=== PATIENT | male | born 1965 | race American Indian/Alaskan Native ===

== ENCOUNTER 2017-02-20 23:15 | Inpatient (IN) | payer MEDICAID ==
[2017-02-21 00:11] LABS: Basophils % (Auto) 0.7 % (0.0-1.8); Eosinophils % (Auto) 5.8 % (0.0-4.3); Hematocrit 34.5 % (35.5-45.6); Hemoglobin 11.5 gm/dl (11.8-15.2); Mean Corpuscular HGB Conc 33 % (32-34); Mean Corpuscular Hemoglobin 31 pg (28-32); Mean Corpuscular Volume 94 fl (84-94); Platelet Count 174 K/mm3 (140-440); Red Blood Count 3.65 M/mm3 (3.65-5.03); White Blood Count 8.2 K/mm3 (4.5-11.0)
[2017-02-21 00:26] LABS: Red Cell Distribution Width 22.7 % (13.2-15.2)
[2017-02-21 00:34] LABS: BUN/Creatinine Ratio 10.47; Calcium 8.8 mg/dL (8.4-10.2); Chloride 103.9 mmol/L (98-107); Potassium 3.6 mmol/L (3.6-5.0)
[2017-02-21] MEDS ORDERED: DUONEB 0.5 MG-3 MG/3 ML SOLN IH ONE ×2 (07:52→13:30)
[2017-02-21] MEDS ORDERED: LASIX IV ONE (07:52)
--- NOTE | 2017-02-21 07:57 | Emergency Department Report ---
HPI - General Chief Complaint: Dyspnea/Respdistress Time Seen by Provider: 02/21/17 07:45 - HPI HPI: This is a 51-year-old Afro[place]er male who presents to the emergency department from home with complaint of a 24-hour history of shortness of breath. He says "I told my sister was having trouble breathing and she told me I should go to the emergency department." It is associated with some chest tightness. He denies any nausea, vomiting or diaphoresis. He does present with some lower extremity swelling. He has a history of COPD but is not oxygen dependent. He has a history of CHF. He does not have a nebulized breathing machine but does have an inhaler and tried his inhaler without much relief. He also has a history of being on Lasix but says he has been out of the medication for about 1 week. He also says that he was recently diagnosed with hepatitis C. He denies any current smoking. No recent travel or sick contacts at home. He does not currently have a primary care physician. ED Past Medical Hx - Past Medical History Previous Medical History?: Yes Hx Hypertension: Yes Hx Congestive Heart Failure: Yes Additional medical history: Hep C - Surgical History Past Surgical History?: Yes Additional Surgical History: Left hip replacement - Social History Smoking Status: Current Every Day Smoker Substance Use Type: Alcohol, Cocaine - Medications Home Medications: Home Medications Medication Instructions Recorded Confirmed Last Taken Type Aspirin [Adult Low Dose Aspirin EC] 81 mg PO DAILY 02/21/17 02/21/17 Unknown History AtorvaSTATin [Lipitor] 40 mg PO QHS 02/21/17 02/21/17 Unknown History Carvedilol [Coreg] 12.5 mg PO BID 02/21/17 02/21/17 Unknown History Escitalopram [Lexapro] 10 mg PO DAILY 02/21/17 02/21/17 Unknown History Folic Acid [Folvite] 1 mg PO QDAY 02/21/17 02/21/17 Unknown History Furosemide [Lasix TAB] 40 mg PO QDAY 02/21/17 02/21/17 Unknown History Hydralazine HCl [Apresoline TAB] 50 mg PO Q8HR 02/21/17 02/21/17 Unknown History Lisinopril [Zestril TAB] 10 mg PO QDAY 02/21/17 02/21/17 Unknown History Quetiapine Fumarate [SEROquel] 50 mg PO QDAY 02/21/17 02/21/17 Unknown History Spironolactone [Aldactone] 25 mg PO QDAY 02/21/17 02/21/17 Unknown History Warfarin [Coumadin] 5 mg PO QDAY 02/21/17 02/21/17 Unknown History Zolpidem [Ambien] 5 mg PO QHS PRN 02/21/17 02/21/17 Unknown History amLODIPine [Norvasc] 10 mg PO DAILY 02/21/17 02/21/17 Unknown History ED Review of Systems ROS: Stated complaint: CHEST PAIN, COPD Other details as noted in HPI Comment: All other systems reviewed and negative Constitutional: denies: chills, fever Eyes: denies: eye pain, eye discharge, vision change ENT: denies: ear pain, throat pain Respiratory: shortness of breath, wheezing Cardiovascular: chest pain, edema Gastrointestinal: denies: abdominal pain, nausea, diarrhea Genitourinary: denies: urgency, dysuria Musculoskeletal: denies: back pain, joint swelling, arthralgia Skin: denies: rash, lesions Neurological: denies: headache, weakness, paresthesias Physical Exam - Physical Exam Vital Signs: Vital Signs 02/20/17 02/21/17 02/21/17 23:48 07:37 07:46 Temperature 97.7 F Pulse Rate 95 H 87 Respiratory 22 28 H Rate Blood Pressure 162/115 Blood Pressure 167/120 [Left] O2 Sat by Pulse 99 99 Oximetry 02/21/17 07:47 Temperature Pulse Rate Respiratory 24 Rate Blood Pressure Blood Pressure [Left] O2 Sat by Pulse 99 Oximetry Physical Exam: GENERAL: The patient is well-developed well-nourished. HEENT: Normocephalic. Atraumatic. Extraocular motions are intact. Patient has moist mucous membranes. Pupils equal reactive to light bilaterally. NECK: Supple. Trachea is midline. CHEST/LUNGS: Coarse breath sounds throughout the chest. No tachypnea or accessory muscle use. There is no respiratory distress noted. HEART/CARDIOVASCULAR: Regular. There is no tachycardia. There is no gallop rub or murmur. ABDOMEN: Abdomen is soft, nontender. Patient has normal bowel sounds. There is no abdominal distention. SKIN: 1-2+ pitting edema to bilateral lower extremity's. NEURO: The patient is awake, alert, and oriented. The patient is cooperative. The patient has no focal neurologic deficits. The patient has normal speech. MUSCULOSKELETAL: There is no tenderness or deformity. There is no limitation range of motion. There is no evidence of acute injury. ED Course Vital Signs 02/20/17 02/21/17 02/21/17 23:48 07:37 07:46 Temperature 97.7 F Pulse Rate 95 H 87 Respiratory 22 28 H Rate Blood Pressure 162/115 Blood Pressure 167/120 [Left] O2 Sat by Pulse 99 99 Oximetry 02/21/17 07:47 Temperature Pulse Rate Respiratory 24 Rate Blood Pressure Blood Pressure [Left] O2 Sat by Pulse 99 Oximetry ED Medical Decision Making - Lab Data Result diagrams: 02/21/17 00:03 02/21/17 00:03 - EKG Data -: EKG Interpreted by Me EKG shows normal: sinus rhythm (PVCs), axis (left axis deviation), intervals ( prolonged QTC, left anterior fascicular block), QRS complexes, ST-T waves (T- wave inversions to the lateral leads V5 and V6) - EKG Data When compared to previous EKG there are: previous EKG unavailable Interpretation: other (sinus rhythm with PVCs, left axis deviation, left anterior fascicular block, prolonged QTC, T-wave inversions to leads V5 and V6) - Radiology Data Radiology results: report reviewed, image reviewed interpreted by me: Chest x-ray shows some mild cardiomegaly, pulmonary vascular congestion and mild basilar pleural effusions. No [place] pneumonia. No pneumothorax. Ventilation perfusion scan is negative for pulmonary embolism. - Medical Decision Making 51-year-old male presents with a few days of shortness of breath. He has a history of COPD and CHF and appears to have some combination of these conditions. While he does have some renal insufficiency, his BNP is greater than 10,000 and a chest x-ray shows signs of CHF. He had an elevated an equivocal d-dimer so a VQ scan was done that was negative for pulmonary embolism. He was given steroids, breathing treatment and Lasix. He'll be admitted to the hospital for further evaluation and treatment and has been accepted for admission by the hospitalist service and the nurse practitioner Ta. - Differential Diagnosis COPD, PE, CHF, IN Critical Care Time: No Critical care attestation.: If time is entered above; I have spent that time in minutes in the direct care of this critically ill patient, excluding procedure time. ED Disposition Clinical Impression: COPD exacerbation CHF exacerbation Qualifiers: Congestive heart failure type: unspecified congestive heart failure type Qualified Code(s): I50.9 - Heart failure, unspecified Dyspnea Qualifiers: Dyspnea type: unspecified Qualified Code(s): R06.00 - Dyspnea, unspecified Disposition: 09 OP ADMIT IP TO THIS HOSP Is pt being admited?: Yes Condition: Stable Instructions: Chronic Obstructive Pulmonary Disease (ED) Referrals: PRIMARY CARE, [Primary Care Provider] - 3-5 Days Time of Disposition: 11:07
[2017-02-21 08:33] LABS: Albumin 3.3 g/dL (3.9-5); Albumin/Globulin Ratio 1.1 %; Bilirubin,Direct 0.2 mg/dL (0-0.2); Bilirubin,Indirect 0.5 mg/dL; Bilirubin,Total 0.7 mg/dL (0.1-1.2); Total Protein 6.3 g/dL (6.3-8.2)
--- NOTE | 2017-02-21 09:13 | XRay Report ---
Chest 2 views. History: Shortness of breath. Findings: The heart is enlarged with mild central venous congestion. Samuel B lines are present. Impression: Mild CHF.
--- NOTE | 2017-02-21 09:45 | Admit Criteria Form ---
Admission Criteria Documentation: COPD Clinical Indications for Admission to Inpatient Care (Place 'X' for any and all applicable criteria): Admission is indicated for ANY ONE of the following (1)(2)(3): [X]I. Acute exacerbation by high-risk comorbidity (e.g., pneumonia, dysrhythmia, heart failure, pleural effusion, pneumothorax) or severe underlying COPD (e.g., steroid dependent) [ ]II. Inpatient admission required rather than observation care (see Chronic Obstructive Pulmonary Disease: Observation Care) because of ANY ONE of the following: [ ]a) New or pre-existing signs or symptoms of COPD (eg, dyspnea or Tachypnea at rest or with minimal activity) that persist despite outpatient and observation care treatment [ ]b) New-onset hypoxemia (room air SaO2 less than 90%, PO2 less than 60 mm Hg (8.0 kPa)) that persists despite outpatient and observation care treatment [ ]c) Worsening of pre-existing hypoxemia (eg, new or increased requirement for supplemental oxygen to maintain oxygenation at baseline level) that persists despite outpatient and observation care treatment, with oxygen treatment needs performable only in acute inpatient setting [ ]d) Hypercarbia (PCO2 greater than 40 mm Hg (5.3 kPa))-induced respiratory acidosis (pH less than 7.35) that persists despite outpatient and observation care treatment [ ]e) Supplemental oxygen or respiratory treatments for over 24 hours that are performable only in acute inpatient setting [ ]f) Chest tube placement with active evacuation (e.g., suction, drainage) (5) [ ]g) Other condition, treatment or monitoring requiring inpatient admission [ ]III. Planned invasive surgical or diagnostic procedures requiring acute- care hospitalization [ ]IV. Acute respiratory failure (e.g., uncompensated hypercarbia, severe hypoxemia) [ ]V. Severe comorbid condition (e.g., severe steroid myopathy, acute vertebral fracture) that has acutely worsened pulmonary function [ ]. Confusion state, lethargy, obtundation, stupor or coma Extended stay beyond goal length of stay may be needed for (31)(32): [ ]a ) Respiratory Failure. [ ]b) Severe or persisting hypoxemia or hypercarbia [ ]c) Severe or persistent dyspnea [ ]d) Comorbidities (e.g. chronic heart failure, atrial fibrillation with rapid response, pneumonia) [ ]e) Malnutrition The original [facility] content created by [facility] has been revised. The portions of the content which have been revised are identified through the use of italic text or in bold, and [facility] has neither reviewed nor approved the modified material. All other unmodified content is copyright [facility]. Please see references footnoted in the original [facility] edition 2016 Admission Criteria Met: Yes
--- NOTE | 2017-02-21 09:56 | Nuclear Medicine Report ---
LUNG SCAN, VENTILATION AND PERFUSION: Inhalation of Xenon gas demonstrates a normal distribution of the activity throughout both lungs. The wash out phases show no focal retention of activity. After injection of Technetium 99m macroaggregated albumin gamma camera imaging of the lungs in multiple projections demonstrates normal pulmonary contours with a homogeneous distribution of activity. No focal areas of perfusion deficiency are identified. IMPRESSION: Normal study.
[2017-02-21] MEDS ORDERED: APRESOLINE IV ONE (09:59)
[2017-02-21] MEDS ORDERED: TYLENOL PO PRN (11:31)
[2017-02-21] MEDS ORDERED: ZOFRAN IV PRN (11:31)
[2017-02-21] MEDS ORDERED: DULCOLAX PR PRN (11:31)
[2017-02-21] MEDS ORDERED: PROVENTIL IH PRN (11:31)
[2017-02-21] MEDS ORDERED: MILK OF MAGNESIA PO PRN (11:31)
--- NOTE | 2017-02-21 11:49 | History and Physical Report ---
History of Present Illness Date of examination: 02/21/17 Date of admission: 02/21/17 Chief complaint: SOB History of present illness: A 51-year-old -[place] male presented to the ED with complaints of shortness of breath and chest tightness 1 day. Patient described the feeling of short of breath, can't breathe and worsened this morning. Patient denies any nausea, vomiting, chest pain, syncope or diaphoresis. Patient's medical history COPD but is not oxygen dependent, CHF, hypertension, newly diagnosed hep C, left hip repair 30 years ago. Patient reported using his inhaler and no relief. Medications and Allergies Allergies Allergy/AdvReac Type Severity Reaction Status Date / Time No Known Allergies Allergy Unverified 02/20/17 23:50 Home Medications Medication Instructions Recorded Confirmed Last Taken Type Aspirin [Adult Low Dose Aspirin EC] 81 mg PO DAILY 02/21/17 02/21/17 Unknown History AtorvaSTATin [Lipitor] 40 mg PO QHS 02/21/17 02/21/17 Unknown History Carvedilol [Coreg] 12.5 mg PO BID 02/21/17 02/21/17 Unknown History Escitalopram [Lexapro] 10 mg PO DAILY 02/21/17 02/21/17 Unknown History Folic Acid [Folvite] 1 mg PO QDAY 02/21/17 02/21/17 Unknown History Furosemide [Lasix TAB] 40 mg PO QDAY 02/21/17 02/21/17 Unknown History Hydralazine HCl [Apresoline TAB] 50 mg PO Q8HR 02/21/17 02/21/17 Unknown History Lisinopril [Zestril TAB] 10 mg PO QDAY 02/21/17 02/21/17 Unknown History Quetiapine Fumarate [SEROquel] 50 mg PO QDAY 02/21/17 02/21/17 Unknown History Spironolactone [Aldactone] 25 mg PO QDAY 02/21/17 02/21/17 Unknown History Warfarin [Coumadin] 5 mg PO QDAY 02/21/17 02/21/17 Unknown History Zolpidem [Ambien] 5 mg PO QHS PRN 02/21/17 02/21/17 Unknown History amLODIPine [Norvasc] 10 mg PO DAILY 02/21/17 02/21/17 Unknown History Active Meds: Active Medications Acetaminophen (Tylenol) 650 mg PO Q4H PRN PRN Reason: Pain MILD(1-3)/Fever >100.5/PAPPAS Albuterol (Proventil) 2.5 mg IH Q3HRT PRN PRN Reason: Shortness Of Breath Albuterol/Ipratropium (Duoneb 0.5 Mg-3 Mg/3 Ml Soln) 1 ampul IH Q6HRT DANTE Bisacodyl (Dulcolax) 10 mg MI QDAY PRN PRN Reason: Constipation unrelieved by MOM Budesonide (Pulmicort) 0.5 mg IH Q12HRT DANTE Magnesium Hydroxide (Milk Of Magnesia) 30 ml PO Q4H PRN PRN Reason: Constipation Ondansetron HCl (Zofran) 4 mg IV Q4H PRN PRN Reason: Nausea And Vomiting Exam - Constitutional Vitals: Temp Pulse Resp BP Pulse Ox 97.7 F 99 H 31 H 156/114 95 02/20/17 23:48 02/21/17 11:00 02/21/17 11:00 02/21/17 11:00 02/21/17 11:00 Results - Labs CBC & Chem 7: 02/21/17 00:03 02/21/17 00:03 Labs: Abnormal lab results 02/21/17 02/21/17 02/21/17 Range/Units 00:03 00:03 08:01 Hgb 11.5 L (11.8-15.2) gm/dl Hct 34.5 L (35.5-45.6) % RDW 22.7 H (13.2-15.2) % [place] % (Auto) 8.8 H (0.0-7.3) % Eos % (Auto) 5.8 H (0.0-4.3) % Eos # 0.5 H (0.0-0.4) K/mm3 D-Dimer 306.73 H (0-234) ng/mlDDU BUN 22 H (9-20) mg/dL Creatinine 2.1 H (0.8-1.5) mg/dL NT-Pro-B Natriuret Pep 53993 H (0-900) pg/mL Albumin (3.9-5) g/dL 02/21/17 Range/Units 08:01 Hgb (11.8-15.2) gm/dl Hct (35.5-45.6) % RDW (13.2-15.2) % [place] % (Auto) (0.0-7.3) % Eos % (Auto) (0.0-4.3) % Eos # (0.0-0.4) K/mm3 D-Dimer (0-234) ng/mlDDU BUN (9-20) mg/dL Creatinine (0.8-1.5) mg/dL NT-Pro-B Natriuret Pep (0-900) pg/mL Albumin 3.3 L (3.9-5) g/dL Assessment and Plan A 51-year-old -[place] male presented to the ED with complaints of shortness of breath and chest tightness 1 day. Patient described the feeling of short of breath, can't breathe and worsened this morning. Patient denies any nausea, vomiting, chest pain, syncope or diaphoresis. Patient's medical history COPD but is not oxygen dependent, CHF, hypertension, newly diagnosed hep C, left hip repair 30 years ago. Patient reported using his inhaler and no relief. On exam, patient alert and oriented 3, denies chest pain, positive pedal pulses, trace bilateral lower dependent edema. Patient also reported he does not have a bleach chlorinator at this time.
[2017-02-21] MEDS: DUONEB 0.5 MG-3 MG/3 ML SOLN IH SCH ×2 (13:48→22:56)
--- NOTE | 2017-02-21 16:46 | History and Physical Report ---
History of Present Illness Date of examination: 02/21/17 Date of admission: 02/21/17 11:31 Chief complaint: SOB History of present illness: HPI: This is a 51-year-old Afro-[place] male who presents to the emergency department from home with complaint of a 24-hour history of shortness of breath. He says "I told my sister was having trouble breathing and she told me I should go to the emergency department." It is associated with some chest tightness. He denies any nausea, vomiting or diaphoresis. He does present with some lower extremity swelling. He has a history of COPD but is not oxygen dependent. He has a history of CHF. He does not have a nebulized breathing machine but does have an inhaler and tried his inhaler without much relief. He also has a history of being on Lasix but says he has been out of the medication for about 1 week. He also says that he was recently diagnosed with hepatitis C. He denies any current smoking. No recent travel or sick contacts at home. He does not currently have a primary care physician. ED Past Medical Hx - Past Medical History Previous Medical History?: Yes Hx Hypertension: Yes Hx Congestive Heart Failure: Yes Additional medical history: Hep C - Surgical History Past Surgical History?: Yes Additional Surgical History: Left hip replacement - Social History Smoking Status: Current Every Day Smoker Substance Use Type: Alcohol, Cocaine - Medications Home Medications: Home Medications Medication Instructions Recorded Confirmed Last Taken Type Aspirin [Adult Low Dose Aspirin EC] 81 mg PO DAILY 02/21/17 02/21/17 Unknown History AtorvaSTATin [Lipitor] 40 mg PO QHS 02/21/17 02/21/17 Unknown History Carvedilol [Coreg] 12.5 mg PO BID 02/21/17 02/21/17 Unknown History Escitalopram [Lexapro] 10 mg PO DAILY 02/21/17 02/21/17 Unknown History Folic Acid [Folvite] 1 mg PO QDAY 02/21/17 02/21/17 Unknown History Furosemide [Lasix TAB] 40 mg PO QDAY 02/21/17 02/21/17 Unknown History Hydralazine HCl [Apresoline TAB] 50 mg PO Q8HR 02/21/17 02/21/17 Unknown History Lisinopril [Zestril TAB] 10 mg PO QDAY 02/21/17 02/21/17 Unknown History Quetiapine Fumarate [SEROquel] 50 mg PO QDAY 02/21/17 02/21/17 Unknown History Spironolactone [Aldactone] 25 mg PO QDAY 02/21/17 02/21/17 Unknown History Warfarin [Coumadin] 5 mg PO QDAY 02/21/17 02/21/17 Unknown History Zolpidem [Ambien] 5 mg PO QHS PRN 02/21/17 02/21/17 Unknown History amLODIPine [Norvasc] 10 mg PO DAILY 02/21/17 02/21/17 Unknown History ED Review of Systems ROS: Stated complaint: CHEST PAIN, COPD Other details as noted in HPI Comment: All other systems reviewed and negative Constitutional: denies: chills, fever Eyes: denies: eye pain, eye discharge, vision change ENT: denies: ear pain, throat pain Respiratory: shortness of breath, wheezing Cardiovascular: chest pain, edema Gastrointestinal: denies: abdominal pain, nausea, diarrhea Genitourinary: denies: urgency, dysuria Musculoskeletal: denies: back pain, joint swelling, arthralgia Skin: denies: rash, lesions Neurological: denies: headache, weakness, paresthesias Medications and Allergies Allergies Allergy/AdvReac Type Severity Reaction Status Date / Time No Known Allergies Allergy Unverified 02/20/17 23:50 Home Medications Medication Instructions Recorded Confirmed Last Taken Type Aspirin [Adult Low Dose Aspirin EC] 81 mg PO DAILY 02/21/17 02/21/17 Unknown History AtorvaSTATin [Lipitor] 40 mg PO QHS 02/21/17 02/21/17 Unknown History Carvedilol [Coreg] 12.5 mg PO BID 02/21/17 02/21/17 Unknown History Escitalopram [Lexapro] 10 mg PO DAILY 02/21/17 02/21/17 Unknown History Folic Acid [Folvite] 1 mg PO QDAY 02/21/17 02/21/17 Unknown History Furosemide [Lasix TAB] 40 mg PO QDAY 02/21/17 02/21/17 Unknown History Hydralazine HCl [Apresoline TAB] 50 mg PO Q8HR 02/21/17 02/21/17 Unknown History Lisinopril [Zestril TAB] 10 mg PO QDAY 02/21/17 02/21/17 Unknown History Quetiapine Fumarate [SEROquel] 50 mg PO QDAY 02/21/17 02/21/17 Unknown History Spironolactone [Aldactone] 25 mg PO QDAY 02/21/17 02/21/17 Unknown History Warfarin [Coumadin] 5 mg PO QDAY 02/21/17 02/21/17 Unknown History Zolpidem [Ambien] 5 mg PO QHS PRN 02/21/17 02/21/17 Unknown History amLODIPine [Norvasc] 10 mg PO DAILY 02/21/17 02/21/17 Unknown History Active Meds: Active Medications Acetaminophen (Tylenol) 650 mg PO Q4H PRN PRN Reason: Pain MILD(1-3)/Fever >100.5/PAPPAS Albuterol (Proventil) 2.5 mg IH Q3HRT PRN PRN Reason: Shortness Of Breath Albuterol/Ipratropium (Duoneb 0.5 Mg-3 Mg/3 Ml Soln) 1 ampul IH Q6HRT [facility] Last Admin: 02/21/17 13:48 Dose: 1 ampul Bisacodyl (Dulcolax) 10 mg [place] QDAY PRN PRN Reason: Constipation unrelieved by MOM Budesonide (Pulmicort) 0.5 mg IH Q12HRT [facility] Heparin Sodium (Porcine) (Heparin) 5,000 unit SUB-Q Q12HR DANTE Magnesium Hydroxide (Milk Of Magnesia) 30 ml PO Q4H PRN PRN Reason: Constipation Ondansetron HCl (Zofran) 4 mg IV Q4H PRN PRN Reason: Nausea And Vomiting Exam - Constitutional Vitals: Temp Pulse Resp BP Pulse Ox 98.8 F 88 18 156/107 97 02/21/17 12:55 02/21/17 12:55 02/21/17 12:55 02/21/17 12:55 02/21/17 12:55 General appearance: Present: no acute distress, well-nourished - EENT Eyes: Present: PERRL ENT: hearing intact, clear oral mucosa - Neck Neck: Present: supple, normal ROM - Respiratory Respiratory effort: normal Respiratory: bilateral: CTA - Cardiovascular Heart Sounds: Present: S1 & S2. Absent: rub, click - Extremities Extremities: pulses symmetrical, No edema Peripheral Pulses: within normal limits - Abdominal General gastrointestinal: Present: soft, non-tender, non-distended, normal bowel sounds Male genitourinary: Present: normal - Integumentary Integumentary: Present: clear, warm, dry - Musculoskeletal Musculoskeletal: gait normal, strength equal bilaterally - Psychiatric Psychiatric: appropriate mood/affect, intact judgment & insight - Neurologic Neurologic: CNII-XII intact, moves all extremities Results - Labs CBC & Chem 7: 02/21/17 00:03 02/21/17 00:03 Labs: Laboratory Last Values WBC 8.2 K/mm3 (4.5-11.0) 02/21/17 00:03 RBC 3.65 M/mm3 (3.65-5.03) 02/21/17 00:03 Hgb 11.5 gm/dl (11.8-15.2) L 02/21/17 00:03 Hct 34.5 % (35.5-45.6) L 02/21/17 00:03 MCV 94 fl (84-94) 02/21/17 00:03 MCH 31 pg (28-32) 02/21/17 00:03 MCHC 33 % (32-34) 02/21/17 00:03 RDW 22.7 % (13.2-15.2) H 02/21/17 00:03 Plt Count 174 K/mm3 (140-440) 02/21/17 00:03 Lymph % (Auto) 14.9 % (13.4-35.0) 02/21/17 00:03 [place] % (Auto) 8.8 % (0.0-7.3) H 02/21/17 00:03 Eos % (Auto) 5.8 % (0.0-4.3) H 02/21/17 00:03 Baso % (Auto) 0.7 % (0.0-1.8) 02/21/17 00:03 Lymph # 1.2 K/mm3 (1.2-5.4) 02/21/17 00:03 [place] # 0.7 K/mm3 (0.0-0.8) 02/21/17 00:03 Eos # 0.5 K/mm3 (0.0-0.4) H 02/21/17 00:03 Baso # 0.1 K/mm3 (0.0-0.1) 02/21/17 00:03 Seg Neutrophils % 69.8 % (40.0-70.0) 02/21/17 00:03 Seg Neutrophils # 5.7 K/mm3 (1.8-7.7) 02/21/17 00:03 D-Dimer 306.73 ng/mlDDU (0-234) H 02/21/17 08:01 Sodium 145 mmol/L (137-145) 02/21/17 00:03 Potassium 3.6 mmol/L (3.6-5.0) 02/21/17 00:03 Chloride 103.9 mmol/L (98-107) 02/21/17 00:03 Carbon Dioxide 27 mmol/L (22-30) 02/21/17 00:03 Anion Gap 18 mmol/L 02/21/17 00:03 BUN 22 mg/dL (9-20) H 02/21/17 00:03 Creatinine 2.1 mg/dL (0.8-1.5) H 02/21/17 00:03 Estimated GFR 40 ml/min 02/21/17 00:03 BUN/Creatinine Ratio 10.47 % 02/21/17 00:03 Glucose 99 mg/dL (75-100) 02/21/17 00:03 Calcium 8.8 mg/dL (8.4-10.2) 02/21/17 00:03 Total Bilirubin 0.70 mg/dL (0.1-1.2) 02/21/17 08:01 Direct Bilirubin 0.2 mg/dL (0-0.2) 02/21/17 08:01 Indirect Bilirubin 0.5 mg/dL 02/21/17 08:01 AST 23 units/L (5-40) 02/21/17 08:01 ALT 20 units/L (7-56) 02/21/17 08:01 Alkaline Phosphatase 80 units/L (35-129) 02/21/17 08:01 Troponin T 0.025 ng/mL (0.00-0.029) 02/21/17 00:03 NT-Pro-B Natriuret Pep 75155 pg/mL (0-900) H 02/21/17 00:03 Total Protein 6.3 g/dL (6.3-8.2) 02/21/17 08:01 Albumin 3.3 g/dL (3.9-5) L 02/21/17 08:01 Albumin/Globulin Ratio 1.1 % 02/21/17 08:01 Short CBC 02/21/17 Range/Units 00:03 WBC 8.2 (4.5-11.0) K/mm3 Hgb 11.5 L (11.8-15.2) gm/dl Hct 34.5 L (35.5-45.6) % Plt Count 174 (140-440) K/mm3 BMP 02/21/17 00:03 Sodium 145 Potassium 3.6 Chloride 103.9 Carbon Dioxide 27 BUN 22 H Creatinine 2.1 H Glucose 99 Calcium 8.8 Cardiac Enzymes 02/21/17 Range/Units 00:03 Troponin T 0.025 (0.00-0.029) ng/mL Liver Function 02/21/17 Range/Units 08:01 Total Bilirubin 0.70 (0.1-1.2) mg/dL Direct Bilirubin 0.2 (0-0.2) mg/dL AST 23 (5-40) units/L ALT 20 (7-56) units/L Alkaline Phosphatase 80 (35-129) units/L Albumin 3.3 L (3.9-5) g/dL Assessment and Plan Assessment and plan: A 51-year-old -[place] male presented to the ED with complaints of shortness of breath and chest tightness 1 day. Patient described the feeling of short of breath, can't breathe and worsened this morning. Patient denies any nausea, vomiting, chest pain, syncope or diaphoresis. Patient's medical history COPD but is not oxygen dependent, CHF, hypertension, newly diagnosed hep C, left hip repair 30 years ago. Patient reported using his inhaler and no relief. On exam, patient alert and oriented 3, denies chest pain, positive pedal pulses, trace bilateral lower dependent edema. Patient also reported he does not have a hydraulic billet maker at this time. -Acute on chronic systolic heart failure-to fluid overload versus acute kidney injury-consulted cardiology, echo for EF and valve function ordered -Acute kidney injury-consulted nephrology -Hypertension-continue home meds, coreg PO -Chronic COPD-continue home meds, nebulizer treatment -DVT prophylaxis-heparin subcutaneous ordered Advance Directives: Yes
[2017-02-21] MEDS: HEPARIN SUB-Q SCH (22:00)
[2017-02-21] MEDS: PULMICORT IH SCH (22:56)
[2017-02-22] MEDS: DUONEB 0.5 MG-3 MG/3 ML SOLN IH SCH ×4 (02:32→21:04)
[2017-02-22 07:01] LABS: Bilirubin,Urine NEG (Negative); Blood,Urine NEG (Negative); Ketones,Urine NEG (Negative); Leukocyte Esterase,Urine NEG (Negative); Nitrite,Urine NEG (Negative); RBC,Urine < 1.0 /HPF (0.0-6.0); Urobilinogen,Urine < 2.0 mg/dL (<2.0)
[2017-02-22 08:05] LABS: Basophils % (Auto) 0.4 % (0.0-1.8); Eosinophils % (Auto) 1.4 % (0.0-4.3); Hematocrit 35.7 % (35.5-45.6); Hemoglobin 11.7 gm/dl (11.8-15.2); Mean Corpuscular HGB Conc 33 % (32-34); Mean Corpuscular Hemoglobin 30 pg (28-32); Mean Corpuscular Volume 92 fl (84-94); Platelet Count 186 K/mm3 (140-440); Red Blood Count 3.87 M/mm3 (3.65-5.03); White Blood Count 9.3 K/mm3 (4.5-11.0)
[2017-02-22 08:17] LABS: Red Cell Distribution Width 22.7 % (13.2-15.2)
[2017-02-22 08:28] LABS: BUN/Creatinine Ratio 13.33; Calcium 8.6 mg/dL (8.4-10.2); Chloride 103.1 mmol/L (98-107); Potassium 3.2 mmol/L (3.6-5.0); Uric Acid 9.1 mg/dL (3.5-7.6)
[2017-02-22] MEDS: PULMICORT IH SCH ×2 (09:00→21:04)
--- NOTE | 2017-02-22 09:44 | Progress Note ---
Subjective Interval history: Patient was seen today for follow-up and multiple renal-related issues He was seen in consultation yesterday Denies any complaints of chest pain pressure or shortness of breath No complaints of pain nausea vomiting Events of 24 hours noted Vitals labs intake output medications were reviewed Objective HEENT: Oral mucosa moist Neck: Supple no JVD Chest: Clear to auscultation no crackles rales wheezes Heart: Regular rate and rhythm S1-S2 heard Abdomen: Soft nontender no renal bruit no CVA tenderness no suprapubic fullness Extremity: Edema less than 1+ dry skin Assessment and plan Renal failure in a patient who has multiple risk factors for underlying chronic kidney disease Reactive upon admission was 2.1 which is currently somewhat better, Accelerated hypertension needs better control and follow-up He has been told to have renal failure in the past as well He is homeless and does not follow-up with physicians even though he has Medicaid as he informs me Multiple comorbidities that makes him prone to progression of renal failure which I have educated him History of ongoing cocaine and tobacco abuse Patient is noncompliant Counseling and education with her regarding renal-related issues all questions were answered We'll continue to follow and make recommendation from renal standpoint Objective - Vital Signs Vital signs: Vital Signs - 12hr 02/22/17 02/22/17 00:00 04:00 Temperature 98.5 F 98.3 F Pulse Rate [ 74 77 Right Radial] Respiratory 18 18 Rate Blood Pressure 146/83 136/93 [Right Arm] O2 Sat by Pulse 98 98 Oximetry - Lab 02/22/17 06:42 02/22/17 06:42 Most recent lab results Calcium 8.6 mg/dL (8.4-10.2) 02/22/17 06:42
[2017-02-22] MEDS: HEPARIN SUB-Q SCH ×2 (10:55→21:36)
--- NOTE | 2017-02-22 14:41 | Consultation ---
History of Present Illness Consult date: 02/22/17 Requesting physician: VITA ENGEL Consult reason: congestive heart failure History of present illness: The pt is a 51-year-old male who has a past medical history significant for HTN , "congestive heart failure", "weak heart", COPD, hepatitis C, tobacco use (1/2 PPD), cocaine use. He is previously unknown to our practice and reports that he is not followed regularly by any doctors as an OP - he frequently goes to the ED with any health concerns. He reports that he is homeless. He presented with c /o SOB, orthopnea, and chest pain x 3 days [employer]. He describes his chest pain as a nonexertional, nonradiating, midsternal tightness that is exacerbated by difficulty breathing. He denies any palpitations, nausea, vomiting, diaphoresis , dizziness, or syncope. On evaluation, he states that his symptoms have completely resolved since receiving Lasix. Past History Past Medical History: COPD, heart failure, hepatitis, hypertension Social history: smoking. denies: alcohol abuse, prescription drug abuse Medications and Allergies Allergies Allergy/AdvReac Type Severity Reaction Status Date / Time No Known Allergies Allergy Unverified 02/20/17 23:50 Home Medications Medication Instructions Recorded Confirmed Last Taken Type Aspirin [Adult Low Dose Aspirin EC] 81 mg PO DAILY 02/21/17 02/21/17 Unknown History AtorvaSTATin [Lipitor] 40 mg PO QHS 02/21/17 02/21/17 Unknown History Carvedilol [Coreg] 12.5 mg PO BID 02/21/17 02/21/17 Unknown History Escitalopram [Lexapro] 10 mg PO DAILY 02/21/17 02/21/17 Unknown History Folic Acid [Folvite] 1 mg PO QDAY 02/21/17 02/21/17 Unknown History Furosemide [Lasix TAB] 40 mg PO QDAY 02/21/17 02/21/17 Unknown History Hydralazine HCl [Apresoline TAB] 50 mg PO Q8HR 02/21/17 02/21/17 Unknown History Lisinopril [Zestril TAB] 10 mg PO QDAY 02/21/17 02/21/17 Unknown History Quetiapine Fumarate [SEROquel] 50 mg PO QDAY 02/21/17 02/21/17 Unknown History Spironolactone [Aldactone] 25 mg PO QDAY 02/21/17 02/21/17 Unknown History Warfarin [Coumadin] 5 mg PO QDAY 02/21/17 02/21/17 Unknown History Zolpidem [Ambien] 5 mg PO QHS PRN 02/21/17 02/21/17 Unknown History amLODIPine [Norvasc] 10 mg PO DAILY 02/21/17 02/21/17 Unknown History Active Meds: Active Medications Acetaminophen (Tylenol) 650 mg PO Q4H PRN PRN Reason: Pain MILD(1-3)/Fever >100.5/PAPPAS Albuterol (Proventil) 2.5 mg IH Q3HRT PRN PRN Reason: Shortness Of Breath Albuterol/Ipratropium (Duoneb 0.5 Mg-3 Mg/3 Ml Soln) 1 ampul IH Q6HRT [facility] Last Admin: 02/22/17 13:31 Dose: Not Given Bisacodyl (Dulcolax) 10 mg [place] QDAY PRN PRN Reason: Constipation unrelieved by MOM Budesonide (Pulmicort) 0.5 mg IH Q12HRT [facility] Last Admin: 02/22/17 09:00 Dose: 0.5 mg Heparin Sodium (Porcine) (Heparin) 5,000 unit SUB-Q Q12HR [facility] Last Admin: 02/22/17 10:55 Dose: Not Given Magnesium Hydroxide (Milk Of Magnesia) 30 ml PO Q4H PRN PRN Reason: Constipation Ondansetron HCl (Zofran) 4 mg IV Q4H PRN PRN Reason: Nausea And Vomiting Review of Systems All systems: negative Cardiovascular: chest pain, orthopnea, shortness of breath Respiratory: shortness of breath Physical Examination Last Vital Signs Temp 98.8 F 02/22/17 12:00 Pulse 90 02/22/17 12:00 Resp 20 02/22/17 12:00 BP 151/94 02/22/17 12:00 Pulse Ox 100 02/22/17 12:00 General appearance: no acute distress HEENT: Positive: PERRL, Normocephaly, Mucus Membranes Moist Neck: Positive: neck supple, trachea midline Cardiac: Positive: Reg Rate and Rhythm, S1/S2 Lungs: Positive: clear to auscultation Neuro: Positive: Grossly Intact, Cranial Nerve 2-12 Intact Abdomen: Positive: Unremarkable, Soft, Active Bowel Sounds Skin: Positive: Clear. Negative: Rash, Wound Musculoskeletal: No Fluid Collection, No Pain, Normal Range of Motion Extremities: Present: upper extr. pulses, lower extr. pulses. Absent: edema Results 02/22/17 06:42 02/22/17 06:42 CBC 02/22/17 Range/Units 06:42 WBC 9.3 (4.5-11.0) K/mm3 RBC 3.87 (3.65-5.03) M/mm3 Hgb 11.7 L (11.8-15.2) gm/dl Hct 35.7 (35.5-45.6) % Plt Count 186 (140-440) K/mm3 Lymph # 1.3 (1.2-5.4) K/mm3 [place] # 0.7 (0.0-0.8) K/mm3 Eos # 0.1 (0.0-0.4) K/mm3 Baso # 0.0 (0.0-0.1) K/mm3 Comprehensive Metabolic Panel 02/22/17 Range/Units 06:42 Sodium 145 (137-145) mmol/L Potassium 3.2 L (3.6-5.0) mmol/L Chloride 103.1 (98-107) mmol/L Carbon Dioxide 25 (22-30) mmol/L BUN 24 H (9-20) mg/dL Creatinine 1.8 H (0.8-1.5) mg/dL Glucose 101 H (75-100) mg/dL Calcium 8.6 (8.4-10.2) mg/dL - Imaging and Cardiology Echo: pending EKG: report reviewed, image reviewed EKG interpretations - Telemetry EKG Rhythm: Sinus Rhythm - EKG Sinus rhythms and dysrhythmias: sinus rhythm Repolarization changes or abnormalities: nonspecific abnormality, ST segment, and/or T wave Assessment and Plan Assessment: Acute heart failure - suspect systolic dysfunction. Chest pain, atypical - EKG with NAF; Terrance negative for AMI. Elevated DDimer - V/Q normal. Accelerated HTN KALIA on ? CKD - renal U/S pending. COPD H/o Hepatitis C Tobacco use / cocaine use - cessation encouraged. Hypokalemia Plan: Await echo. Initiate Coreg, 25mg BID, and lisinopril, 5mg daily. Cont diuresis with IV lasix, 20mg BID. Repeat BMP in AM. Obtain lipid panel in AM. Electrolyte replacement per primary/nephrology. Repeat BMP in AM. Assessment and plan reviewed with pt at bedside. The patient has been seen in conjunction with Dr. Valiente who agrees with the assessment and plan of care.
[2017-02-22] MEDS: ZESTRIL PO SCH (16:45)
[2017-02-22] MEDS ORDERED: K-DUR PO ONE (17:00)
[2017-02-22] MEDS: LASIX IV SCH (18:20)
--- NOTE | 2017-02-22 18:34 | Progress Note ---
Assessment and Plan Assessment and plan: Patient is a 51-year-old Afro-[place] male who presents to the emergency department from home with complaint of a 24-hour history of shortness of breath. He says "I told my sister was having trouble breathing and she told me I should go to the emergency department." It is associated with some chest tightness. He denies any nausea, vomiting or diaphoresis. He does present with some lower extremity swelling. He has a history of COPD but is not oxygen dependent. He has a history of CHF. He does not have a nebulized breathing machine but does have an inhaler and tried his inhaler without much relief. He also has a history of being on Lasix but says he has been out of the medication for about 1 week. He also says that he was recently diagnosed with hepatitis C. He denies any current smoking. No recent travel or sick contacts at home. He does not currently have a primary care physician -Acute on chronic systolic heart failure-likely secondary to noncompliance with medication. Is into exacerbation. Await cardiology input. Start Coreg, 25mg BID, and lisinopril, 5mg daily, await echo for EF, Lipid panel. Request record from [facility] -Acute kidney injury-poa, Unknown baseline. possible underlying CKD. consulted nephrology -Hypertension-continue home meds, coreg PO -Hypokalemia-Replace -Atypical chest pain-Likely colitis -COPD-nebs PRN -Elevated D.dimer- Negative V/Q -Hepatitis C-Outpatient GI -Tobacco dependence- 15 minutes cessations COUNSELLING with community resources provided. -Cocain abuse. -15 minutes cessations COUNSELLING with community resources provided. -Chronic COPD-continue home meds, nebulizer treatment -DVT prophylaxis-heparin subcutaneous ordered -Plan of care discussed with patient Hospitalist Physical - Constitutional Vitals: Temp Pulse Resp BP Pulse Ox 98.8 F 90 20 151/94 100 02/22/17 12:00 02/22/17 16:45 02/22/17 12:00 02/22/17 16:45 02/22/17 12:00 General appearance: Present: no acute distress Results - Labs CBC & Chem 7: 02/22/17 06:42 02/22/17 06:42 Labs: Laboratory Last Values WBC 9.3 K/mm3 (4.5-11.0) 02/22/17 06:42 RBC 3.87 M/mm3 (3.65-5.03) 02/22/17 06:42 Hgb 11.7 gm/dl (11.8-15.2) L 02/22/17 06:42 Hct 35.7 % (35.5-45.6) 02/22/17 06:42 MCV 92 fl (84-94) 02/22/17 06:42 MCH 30 pg (28-32) 02/22/17 06:42 MCHC 33 % (32-34) 02/22/17 06:42 RDW 22.7 % (13.2-15.2) H 02/22/17 06:42 Plt Count 186 K/mm3 (140-440) 02/22/17 06:42 Lymph % (Auto) 13.4 % (13.4-35.0) 02/22/17 06:42 [place] % (Auto) 8.0 % (0.0-7.3) H 02/22/17 06:42 Eos % (Auto) 1.4 % (0.0-4.3) 02/22/17 06:42 Baso % (Auto) 0.4 % (0.0-1.8) 02/22/17 06:42 Lymph # 1.3 K/mm3 (1.2-5.4) 02/22/17 06:42 [place] # 0.7 K/mm3 (0.0-0.8) 02/22/17 06:42 Eos # 0.1 K/mm3 (0.0-0.4) 02/22/17 06:42 Baso # 0.0 K/mm3 (0.0-0.1) 02/22/17 06:42 Seg Neutrophils % 76.8 % (40.0-70.0) H 02/22/17 06:42 Seg Neutrophils # 7.2 K/mm3 (1.8-7.7) 02/22/17 06:42 D-Dimer 306.73 ng/mlDDU (0-234) H 02/21/17 08:01 Sodium 145 mmol/L (137-145) 02/22/17 06:42 Potassium 3.2 mmol/L (3.6-5.0) L 02/22/17 06:42 Chloride 103.1 mmol/L (98-107) 02/22/17 06:42 Carbon Dioxide 25 mmol/L (22-30) 02/22/17 06:42 Anion Gap 20 mmol/L 02/22/17 06:42 BUN 24 mg/dL (9-20) H 02/22/17 06:42 Creatinine 1.8 mg/dL (0.8-1.5) H 02/22/17 06:42 Estimated GFR 48 ml/min 02/22/17 06:42 BUN/Creatinine Ratio 13.33 % 02/22/17 06:42 Glucose 101 mg/dL (75-100) H 02/22/17 06:42 Uric Acid 9.1 mg/dL (3.5-7.6) H 02/22/17 06:42 Calcium 8.6 mg/dL (8.4-10.2) 02/22/17 06:42 Total Bilirubin 0.70 mg/dL (0.1-1.2) 02/21/17 08:01 Direct Bilirubin 0.2 mg/dL (0-0.2) 02/21/17 08:01 Indirect Bilirubin 0.5 mg/dL 02/21/17 08:01 AST 23 units/L (5-40) 02/21/17 08:01 ALT 20 units/L (7-56) 02/21/17 08:01 Alkaline Phosphatase 80 units/L (35-129) 02/21/17 08:01 Troponin T 0.025 ng/mL (0.00-0.029) 02/21/17 00:03 NT-Pro-B Natriuret Pep 92545 pg/mL (0-900) H 02/21/17 00:03 Total Protein 6.3 g/dL (6.3-8.2) 02/21/17 08:01 Albumin 3.3 g/dL (3.9-5) L 02/21/17 08:01 Albumin/Globulin Ratio 1.1 % 02/21/17 08:01 Urine Color Yellow (Yellow) 02/22/17 Unknown Urine Turbidity Clear (Clear) 02/22/17 Unknown Urine pH 6.0 (5.0-7.0) 02/22/17 Unknown Ur Specific [place] 1.019 (1.003-1.030) 02/22/17 Unknown Urine Protein 30 mg/dl mg/dL (Negative) 02/22/17 Unknown Urine Glucose (UA) 50 mg/dL (Negative) 02/22/17 Unknown Urine Ketones Neg mg/dL (Negative) 02/22/17 Unknown Urine Blood Neg (Negative) 02/22/17 Unknown Urine Nitrite Neg (Negative) 02/22/17 Unknown Urine Bilirubin Neg (Negative) 02/22/17 Unknown Urine Urobilinogen < 2.0 mg/dL (<2.0) 02/22/17 Unknown Ur Leukocyte Esterase Neg (Negative) 02/22/17 Unknown Urine WBC (Auto) 1.0 /HPF (0.0-6.0) 02/22/17 Unknown Urine RBC (Auto) < 1.0 /HPF (0.0-6.0) 02/22/17 Unknown U Epithel Cells (Auto) < 1.0 /HPF (0-13.0) 02/22/17 Unknown - Imaging and Cardiology Chest x-ray: image reviewed (CHF)
[2017-02-22] MEDS: COREG PO SCH (21:35)
[2017-02-22] MEDS ORDERED: AMBIEN PO ONE (22:16)
[2017-02-23] MEDS: DUONEB 0.5 MG-3 MG/3 ML SOLN IH SCH ×4 (02:34→20:51)
[2017-02-23] MEDS: LASIX IV SCH ×2 (05:28→18:00)
[2017-02-23] MEDS: PULMICORT IH SCH ×2 (07:35→20:51)
--- NOTE | 2017-02-23 07:38 | Progress Note ---
Subjective Interval history: Patient was seen today for follow-up and multiple renal-related issues Feeling better /less short of breath No complaints of pain nausea vomiting Events of 24 hours noted Vitals labs intake output medications were reviewed Objective HEENT: Oral mucosa moist Neck: Supple no JVD Chest: Clear to auscultation no crackles rales wheezes Heart: Regular rate and rhythm S1-S2 heard Abdomen: Soft nontender no renal bruit no CVA tenderness no suprapubic fullness Extremity: Edema less than 1+ dry skin Assessment and plan Renal failure in a patient who has multiple risk factors for underlying chronic kidney disease Creatinine is better to follow, he is high risk for progression of renal failure educated to comply make lifestyle changes and make a follow-up appointment in the office upon discharge Ultrasonogram shows echogenic kidney with cyst patient was made aware Reactive upon admission was 2.1 which is currently somewhat better, creatinine is currently stable at 1.8 Accelerated hypertension needs better control and follow-up/ ideally would like to add Aldactone however due to noncompliance I am somewhat hesitant about that He has been told to have renal failure in the past as well He is homeless and does not follow-up with physicians even though he has Medicaid as he informs me Multiple comorbidities that makes him prone to progression of renal failure which I have educated him History of ongoing cocaine and tobacco abuse Patient is noncompliant/counseling and education was done Counseling and education with her regarding renal-related issues all questions were answered We'll continue to follow and make recommendation from renal standpoint Objective - Vital Signs Vital signs: Vital Signs - 12hr 02/22/17 02/22/17 02/22/17 20:00 21:05 21:15 Temperature 98.5 F Pulse Rate [ 76 80 Anterior Bilateral Throughout] Pulse Rate [ 93 H Right Radial] Respiratory 18 Rate Respiratory 20 20 Rate [Anterior Bilateral Throughout] Blood Pressure 150/106 [Right Arm] O2 Sat by Pulse 98 Oximetry 02/23/17 02/23/17 02/23/17 00:00 02:35 02:55 Temperature 98.4 F Pulse Rate [ 72 75 Anterior Bilateral Throughout] Pulse Rate [ 70 Right Radial] Respiratory 18 Rate Respiratory 16 16 Rate [Anterior Bilateral Throughout] Blood Pressure 130/89 [Right Arm] O2 Sat by Pulse 97 Oximetry 02/23/17 06:03 Temperature 98.2 F Pulse Rate [ Anterior Bilateral Throughout] Pulse Rate [ 72 Right Radial] Respiratory 18 Rate Respiratory Rate [Anterior Bilateral Throughout] Blood Pressure 119/79 [Right Arm] O2 Sat by Pulse 97 Oximetry - Lab 02/22/17 06:42 02/23/17 07:34 Most recent lab results Calcium 8.6 mg/dL (8.4-10.2) 02/22/17 06:42
--- NOTE | 2017-02-23 08:03 | Ultrasound Report ---
ULTRASOUND RENAL BILATERAL HISTORY: Elevated BUN and creatinine, renal insufficiency. TECHNIQUE: transabdominal ultrasound with color Doppler interrogation. FINDINGS: The right kidney measures 10.4 x 4.0 x 4.7cm. Right renal cortex: 1.3cm. The left kidney measures 10.5 x 5.5 x 5.6cm. Left renal cortex: 1.8cm. Both kidneys are slightly echogenic suggesting nonspecific renal parenchymal disease. There are a few scattered cysts in both kidneys. The largest cyst in the right kidney measures 1.6 cm near the inferior pole. The largest cyst in the left kidney measures 3.2 cm at the superior pole and contains rim calcifications. No hypervascular renal mass, nephrolithiasis, hydronephrosis or perinephric fluid. There is suggestion of a duplicated collecting system in the right kidney. Color Doppler interrogation suggests decreased cortical perfusion in both kidneys. Images through the bladder are unremarkable. IMPRESSION: Renal parenchymal disease. Bilateral renal cysts as described.
[2017-02-23 08:27] LABS: BUN/Creatinine Ratio 13.33; Calcium 8.6 mg/dL (8.4-10.2); Chloride 104.3 mmol/L (98-107); Potassium 3.4 mmol/L (3.6-5.0)
[2017-02-23] MEDS: ZESTRIL PO SCH (09:37)
[2017-02-23] MEDS: COREG PO SCH ×2 (09:37→22:03)
[2017-02-23] MEDS: HEPARIN SUB-Q SCH ×2 (09:37→22:04)
--- NOTE | 2017-02-23 12:06 | Progress Note ---
Assessment and Plan Assessment: Acute systolic heart failure CMP - EF 15-20% Chest pain, atypical - currently resolved; EKG with NAF; Terrance negative for AMI. Elevated DDimer - V/Q normal. Accelerated HTN - improving. KALIA on ? CKD - renal U/S pending. COPD H/o Hepatitis C Tobacco use / cocaine use - cessation encouraged. Hypokalemia Plan: Echo reviewed - EF 15-20%, LV moderately to severely dilated, moderate to severe MR, moderate pulmonary HTN. Cont Coreg, 25mg BID, and lisinopril, 5mg daily. Cont diuresis with IV lasix, 20mg BID. Repeat BMP in AM. Plan for ischemic evaluation for further evaluation of CMP etiology. In setting of ARF, will proceed with lexiscan MPI stress test in AM. NPO after MN. Pt's sister at bedside state's that pt is regularly followed by [facility] - she will provide the kiln loader's name tomorrow AM. Assessment and plan reviewed with pt and pt's sister at bedside. The patient has been seen in conjunction with Dr. Valiente who agrees with the assessment and plan of care. Subjective Date of service: 02/23/17 Principal diagnosis: HF Interval history: no complaints Objective Last Vital Signs Temp 98.8 F 02/23/17 08:15 Pulse 70 02/23/17 11:51 Resp 18 02/23/17 10:00 BP 142/96 02/23/17 08:15 Pulse Ox 98 02/23/17 10:00 - Physical Examination HEENT: Positive: PERRL, Normocephaly, Mucus Membranes Moist Neck: Positive: neck supple, trachea midline Cardiac: Positive: Reg Rate and Rhythm, S1/S2 Lungs: Positive: clear to auscultation Neuro: Positive: Grossly Intact, Cranial Nerve 2-12 Intact Abdomen: Positive: Unremarkable, Soft, Active Bowel Sounds Skin: Positive: Clear. Negative: Rash, Wound Musculoskeletal: No Fluid Collection, No Pain, Normal Range of Motion Extremities: Present: upper extr. pulses, lower extr. pulses. Absent: edema - Labs and Meds Comprehensive Metabolic Panel 02/23/17 Range/Units 07:34 Sodium 145 (137-145) mmol/L Potassium 3.4 L (3.6-5.0) mmol/L Chloride 104.3 (98-107) mmol/L Carbon Dioxide 27 (22-30) mmol/L BUN 24 H (9-20) mg/dL Creatinine 1.8 H (0.8-1.5) mg/dL Glucose 97 (75-100) mg/dL Calcium 8.6 (8.4-10.2) mg/dL - Imaging and Cardiology EKG: report reviewed, image reviewed Echo: pending - EKG Sinus rhythms and dysrhythmias: sinus rhythm Repolarization changes or abnormalities: nonspecific abnormality, ST segment, and/or T wave
--- NOTE | 2017-02-23 17:34 | Progress Note ---
Assessment and Plan Assessment and plan: Patient is a 51-year-old Afro-[place] male who presents to the emergency department from home with complaint of a 24-hour history of shortness of breath. He says "I told my sister was having trouble breathing and she told me I should go to the emergency department." It is associated with some chest tightness. He denies any nausea, vomiting or diaphoresis. He does present with some lower extremity swelling. He has a history of COPD but is not oxygen dependent. He has a history of CHF. He does not have a nebulized breathing machine but does have an inhaler and tried his inhaler without much relief. He also has a history of being on Lasix but says he has been out of the medication for about 1 week. He also says that he was recently diagnosed with hepatitis C. He denies any current smoking. No recent travel or sick contacts at home. He does not currently have a primary care physician -Acute on chronic systolic heart failure-likely secondary to noncompliance with medication. Cardiology input noted. Patient seen to have an ejection fraction of 15-20%. Ischemic workup to be performed by cardiology in a.m. Continue Coreg, 25mg BID, and lisinopril, 5mg daily, and Lasix while monitoring renal function. Lipid panel. Request record from [facility] -Acute kidney injury-poa, Unknown baseline. possible underlying CKD. Nephrology input noted mild improvement today. -Hypertension-continue home meds, coreg PO -Hypokalemia-Replace -Atypical chest pain-Likely colitis -COPD-nebs PRN -Elevated D.dimer- Negative V/Q -Hepatitis C-Outpatient GI -Tobacco dependence- 15 minutes cessations COUNSELLING with community resources provided. -Cocain abuse. -15 minutes cessations COUNSELLING with community resources provided. -Chronic COPD-continue home meds, nebulizer treatment -DVT prophylaxis-heparin subcutaneous ordered -Plan of care discussed with patient -I had extensive discussion with the patient and also with the sister in the room with the patient's permission. I explained detailed procedures that are going to happen next and the need for patient compliance. The patient verbalized understanding. Also discussed with cardiology and they verbalize understanding. History Interval history: Patient seen and examined this morning family member in the room denies any chest pain, shortness of breath nausea vomiting or diarrhea. Hospitalist Physical - Physical exam Narrative exam: VITAL SIGNS: Reviewed. GENERAL: The patient appeared well nourished and normally developed. Vital signs as documented. HEAD: No signs of head trauma. EYES: Pupils are equal. Extraocular motions intact. EARS: Hearing grossly intact. MOUTH: Oropharynx is normal. NECK: No adenopathy, no JVD. CHEST: Chest with clear breath sounds bilaterally. No wheezes, rales, or rhonchi. CARDIAC: Regular rate and rhythm. S1 and S2, without murmurs, gallops, or rubs. VASCULAR: No Edema. Peripheral pulses normal and equal in all extremities. ABDOMEN: Soft, without detectable tenderness. No sign of distention. No rebound or guarding, and no masses palpated. Bowel Sounds normal. MUSCULOSKELETAL: Good range of motion of all major joints. Extremities without clubbing, cyanosis or edema. NEUROLOGIC EXAM: Alert and oriented x 3. No focal sensory or strength deficits. Speech normal. Follows commands. PSYCHIATRIC: Mood normal. SKIN: No rash or lesions. - Constitutional Vitals: Temp Pulse Resp BP Pulse Ox 97.3 F L 68 18 132/82 98 02/23/17 12:30 02/23/17 12:30 02/23/17 12:30 02/23/17 12:30 02/23/17 12:30 General appearance: Present: no acute distress, well-nourished Results - Labs CBC & Chem 7: 02/22/17 06:42 02/23/17 07:34 Labs: Laboratory Last Values WBC 9.3 K/mm3 (4.5-11.0) 02/22/17 06:42 RBC 3.87 M/mm3 (3.65-5.03) 02/22/17 06:42 Hgb 11.7 gm/dl (11.8-15.2) L 02/22/17 06:42 Hct 35.7 % (35.5-45.6) 02/22/17 06:42 MCV 92 fl (84-94) 02/22/17 06:42 MCH 30 pg (28-32) 02/22/17 06:42 MCHC 33 % (32-34) 02/22/17 06:42 RDW 22.7 % (13.2-15.2) H 02/22/17 06:42 Plt Count 186 K/mm3 (140-440) 02/22/17 06:42 Lymph % (Auto) 13.4 % (13.4-35.0) 02/22/17 06:42 [place] % (Auto) 8.0 % (0.0-7.3) H 02/22/17 06:42 Eos % (Auto) 1.4 % (0.0-4.3) 02/22/17 06:42 Baso % (Auto) 0.4 % (0.0-1.8) 02/22/17 06:42 Lymph # 1.3 K/mm3 (1.2-5.4) 02/22/17 06:42 [place] # 0.7 K/mm3 (0.0-0.8) 02/22/17 06:42 Eos # 0.1 K/mm3 (0.0-0.4) 02/22/17 06:42 Baso # 0.0 K/mm3 (0.0-0.1) 02/22/17 06:42 Seg Neutrophils % 76.8 % (40.0-70.0) H 02/22/17 06:42 Seg Neutrophils # 7.2 K/mm3 (1.8-7.7) 02/22/17 06:42 D-Dimer 306.73 ng/mlDDU (0-234) H 02/21/17 08:01 Sodium 145 mmol/L (137-145) 02/23/17 07:34 Potassium 3.4 mmol/L (3.6-5.0) L 02/23/17 07:34 Chloride 104.3 mmol/L (98-107) 02/23/17 07:34 Carbon Dioxide 27 mmol/L (22-30) 02/23/17 07:34 Anion Gap 17 mmol/L 02/23/17 07:34 BUN 24 mg/dL (9-20) H 02/23/17 07:34 Creatinine 1.8 mg/dL (0.8-1.5) H 02/23/17 07:34 Estimated GFR 48 ml/min 02/23/17 07:34 BUN/Creatinine Ratio 13.33 % 02/23/17 07:34 Glucose 97 mg/dL (75-100) 02/23/17 07:34 Uric Acid 9.1 mg/dL (3.5-7.6) H 02/22/17 06:42 Calcium 8.6 mg/dL (8.4-10.2) 02/23/17 07:34 Total Bilirubin 0.70 mg/dL (0.1-1.2) 02/21/17 08:01 Direct Bilirubin 0.2 mg/dL (0-0.2) 02/21/17 08:01 Indirect Bilirubin 0.5 mg/dL 02/21/17 08:01 AST 23 units/L (5-40) 02/21/17 08:01 ALT 20 units/L (7-56) 02/21/17 08:01 Alkaline Phosphatase 80 units/L (35-129) 02/21/17 08:01 Troponin T 0.025 ng/mL (0.00-0.029) 02/21/17 00:03 NT-Pro-B Natriuret Pep 32098 pg/mL (0-900) H 02/21/17 00:03 Total Protein 6.3 g/dL (6.3-8.2) 02/21/17 08:01 Albumin 3.3 g/dL (3.9-5) L 02/21/17 08:01 Albumin/Globulin Ratio 1.1 % 02/21/17 08:01 Urine Color Yellow (Yellow) 02/22/17 Unknown Urine Turbidity Clear (Clear) 02/22/17 Unknown Urine pH 6.0 (5.0-7.0) 02/22/17 Unknown Ur Specific [place] 1.019 (1.003-1.030) 02/22/17 Unknown Urine Protein 30 mg/dl mg/dL (Negative) 02/22/17 Unknown Urine Glucose (UA) 50 mg/dL (Negative) 02/22/17 Unknown Urine Ketones Neg mg/dL (Negative) 02/22/17 Unknown Urine Blood Neg (Negative) 02/22/17 Unknown Urine Nitrite Neg (Negative) 02/22/17 Unknown Urine Bilirubin Neg (Negative) 02/22/17 Unknown Urine Urobilinogen < 2.0 mg/dL (<2.0) 02/22/17 Unknown Ur Leukocyte Esterase Neg (Negative) 02/22/17 Unknown Urine WBC (Auto) 1.0 /HPF (0.0-6.0) 02/22/17 Unknown Urine RBC (Auto) < 1.0 /HPF (0.0-6.0) 02/22/17 Unknown U Epithel Cells (Auto) < 1.0 /HPF (0-13.0) 02/22/17 Unknown
[2017-02-24] MEDS: DUONEB 0.5 MG-3 MG/3 ML SOLN IH SCH ×4 (02:13→22:08)
[2017-02-24] MEDS: LASIX IV SCH (05:42)
[2017-02-24 06:10] LABS: BUN/Creatinine Ratio 16.31; Calcium 8.4 mg/dL (8.4-10.2); Chloride 106.4 mmol/L (98-107); Potassium 3.4 mmol/L (3.6-5.0)
[2017-02-24] MEDS: PULMICORT IH SCH ×2 (08:03→22:08)
--- NOTE | 2017-02-24 08:38 | Progress Note ---
Assessment and Plan Assessment: * Acute kidney injury on probable CKD * Accelerated hypertension * Acute on chronic systolic heart failure - TTE LVEF 15-20% Plan: * Renal function is stable. * Continue current antiHTN medications * Continue Lasix 20mg BID - diuresis per cardiology * Avoid potential nephrotoxins * Dose medications for renal function Subjective Date of service: 02/24/17 Interval history: Patient reports that his breathing is "a whole lot better" Objective - Vital Signs Vital signs: Vital Signs - 12hr 02/23/17 02/23/17 02/23/17 20:54 21:10 21:44 Temperature 97.4 F L Pulse Rate Pulse Rate [ 75 77 Anterior Bilateral Throughout] Pulse Rate [ 73 Right Radial] Respiratory 18 Rate Respiratory 20 20 Rate [Anterior Bilateral Throughout] Blood Pressure Blood Pressure 131/106 [Right Arm] O2 Sat by Pulse 96 Oximetry 02/23/17 02/24/17 02/24/17 22:03 02:07 03:31 Temperature 98.4 F Pulse Rate 73 74 Pulse Rate [ Anterior Bilateral Throughout] Pulse Rate [ 70 Right Radial] Respiratory 20 Rate Respiratory Rate [Anterior Bilateral Throughout] Blood Pressure 131/106 Blood Pressure 129/90 [Right Arm] O2 Sat by Pulse 97 Oximetry 02/24/17 06:39 Temperature 98.3 F Pulse Rate Pulse Rate [ Anterior Bilateral Throughout] Pulse Rate [ 68 Right Radial] Respiratory 20 Rate Respiratory Rate [Anterior Bilateral Throughout] Blood Pressure Blood Pressure 129/91 [Right Arm] O2 Sat by Pulse 100 Oximetry - General Appearance General appearance: well-developed, well-nourished EENT: ATNC Respiratory: Present: Clear to Ascultation Cardiology: regular, S1S2 Gastrointestinal: normal, no tenderness, no distended Integumentary: no rash Neurologic: no focal deficit, alert and oriented x3 Psychiatric: mood/affect appropriate, cooperative - Lab 02/22/17 06:42 02/24/17 05:35 Most recent lab results Calcium 8.4 mg/dL (8.4-10.2) 02/24/17 05:35
[2017-02-24] MEDS ORDERED: LEXISCAN IV ONE ×2 (09:24→09:27)
--- NOTE | 2017-02-24 09:26 | Query-Kidney Disease ---
Dear ____Iban Date:____02/24/17 [employer] Hatcher[employer] Supervisor/CDS: Maninder Jessy Phone#:____[phone] Exercise your independent professional judgment when responding to query. Questions asked do not imply a particular answer is desired or expected. We greatly appreciate your clarification on this issue. Clinical Documentation States: 51 year old male was admitted on 02/21/17. The hospitalist progress note (02/23/17) " Assessment and plan: Patient is a 51-year-old Afro-German male who presents to the emergency department from home with complaint of a 24-hour history of shortness of breath. He says "I told my sister was having trouble breathing and she told me I should go to the emergency department." It is associated with some chest tightness. He denies any nausea, vomiting or diaphoresis. He does present with some lower extremity swelling. He has a history of COPD but is not oxygen dependent. He has a history of CHF. He does not have a nebulized breathing machine but does have an inhaler and tried his inhaler without much relief. He also has a history of being on Lasix but says he has been out of the medication for about 1 week. Acute kidney injury-poa, Unknown baseline. possible underlying CKD. Nephrology input noted mild improvement today. " Clinical Findings Show: 02/21/17 02/23/17 Creatinine: 2.1 1.8 Please Clarify if you mean: Acute Renal Failure with or due to: [ ] Tubular Necrosis [ ] Cortical Necrosis [ ] Shock Kidney [ X] Vasomotor Nephropathy [ ] Lower Tubular Nephrosis [ ] Renal Tubular Stasis [ ] Tubular Nephrosis [ ] Medullary Necrosis [ ] Acute Renal Failure (unspecified) [ ] Other: [ ] Comment/Explanation: Chronic Kidney Disease (Please gulkana applicable stage) 3 Stages Description GFR [ ] CKD Stage 1 90 mL/min or more [ ] CKD Stage 2 Mild decrease in Kidney function 60 to 89 mL/min [ X] CKD Stage 3 Moderate decrease in kidney function 30-59 [ ] CKD Stage 4 Severe decrease in kidney function 15-29 [ ] CKD Stage 5 Kidney failure; requiring dialysis or transplantation <15 [ ] ESRD Patient requiring dialysis for > 3 months or kidney transplant irrespective of level of GFR; Applicable for 1 year after kidney transplant [ ] Other: [ ] Comment/Explanation: Present on Admission: [Y ] Yes (Y) [ ] Clinically undeterminable (W) [ ] No (N) Please also document response in your Progress Notes and/or Discharge Summary and indicate if the condition was present on admission MTDD
[2017-02-24] MEDS: HEPARIN SUB-Q SCH (10:09)
[2017-02-24] MEDS: ZESTRIL PO SCH (10:09)
[2017-02-24] MEDS: COREG PO SCH (10:09)
--- NOTE | 2017-02-24 10:25 | Progress Note ---
Assessment and Plan Assessment and plan: Patient is a 51-year-old Afro-[place] male who presents to the emergency department from home with complaint of a 24-hour history of shortness of breath. He says "I told my sister was having trouble breathing and she told me I should go to the emergency department." It is associated with some chest tightness. He denies any nausea, vomiting or diaphoresis. He does present with some lower extremity swelling. He has a history of COPD but is not oxygen dependent. He has a history of CHF. He does not have a nebulized breathing machine but does have an inhaler and tried his inhaler without much relief. He also has a history of being on Lasix but says he has been out of the medication for about 1 week. He also says that he was recently diagnosed with hepatitis C. He denies any current smoking. No recent travel or sick contacts at home. He does not currently have a primary care physician -Acute on chronic systolic heart failure-likely secondary to noncompliance with medication. Cardiology input noted. Patient seen to have an ejection fraction of 15-20%. Ischemic workup to be performed by cardiology in a.m. Continue Coreg, 25mg BID, and lisinopril, 5mg daily, and Lasix while monitoring renal function. Lipid panel. Request record from [facility]. Discussed with cardiology awaiting LifeVest -Acute kidney injury-poa, Unknown baseline. possible underlying CKD. Nephrology input noted mild improvement today. -Hypertension-continue home meds, coreg PO -Hypokalemia-Replace -Atypical chest pain-Likely colitis -COPD-nebs PRN -Elevated D.dimer- Negative V/Q -Hepatitis C-Outpatient GI -Tobacco dependence- 15 minutes cessations COUNSELLING with community resources provided. -Cocain abuse. -15 minutes cessations COUNSELLING with community resources provided. -Chronic COPD-continue home meds, nebulizer treatment -DVT prophylaxis-heparin subcutaneous ordered -Plan of care discussed with patient -I had extensive discussion with the patient and also with the sister in the room with the patient's permission. I did spend discuss lifevest with the patient. Patient understands the need to use this device as instructed. History Interval history: Patient seen and examined this morning, IN NO ACUTE DISTRESS denies any chest pain, shortness of breath nausea vomiting or diarrhea. Hospitalist Physical - Physical exam Narrative exam: VITAL SIGNS: Reviewed. GENERAL: The patient appeared well nourished and normally developed. Vital signs as documented. HEAD: No signs of head trauma. EYES: Pupils are equal. Extraocular motions intact. EARS: Hearing grossly intact. MOUTH: Oropharynx is normal. NECK: No adenopathy, no JVD. CHEST: Chest with clear breath sounds bilaterally. No wheezes, rales, or rhonchi. CARDIAC: Regular rate and rhythm. S1 and S2, without murmurs, gallops, or rubs. VASCULAR: No Edema. Peripheral pulses normal and equal in all extremities. ABDOMEN: Soft, without detectable tenderness. No sign of distention. No rebound or guarding, and no masses palpated. Bowel Sounds normal. MUSCULOSKELETAL: Good range of motion of all major joints. Extremities without clubbing, cyanosis or edema. NEUROLOGIC EXAM: Alert and oriented x 3. No focal sensory or strength deficits. Speech normal. Follows commands. PSYCHIATRIC: Mood normal. SKIN: No rash or lesions. - Constitutional Vitals: Temp Pulse Resp BP Pulse Ox 98.3 F 68 20 129/91 100 02/24/17 06:39 02/24/17 06:39 02/24/17 06:39 02/24/17 06:39 02/24/17 06:39 General appearance: Present: no acute distress, well-nourished Results - Labs CBC & Chem 7: 02/22/17 06:42 02/24/17 05:35 Labs: Laboratory Last Values WBC 9.3 K/mm3 (4.5-11.0) 02/22/17 06:42 RBC 3.87 M/mm3 (3.65-5.03) 02/22/17 06:42 Hgb 11.7 gm/dl (11.8-15.2) L 02/22/17 06:42 Hct 35.7 % (35.5-45.6) 02/22/17 06:42 MCV 92 fl (84-94) 02/22/17 06:42 MCH 30 pg (28-32) 02/22/17 06:42 MCHC 33 % (32-34) 02/22/17 06:42 RDW 22.7 % (13.2-15.2) H 02/22/17 06:42 Plt Count 186 K/mm3 (140-440) 02/22/17 06:42 Lymph % (Auto) 13.4 % (13.4-35.0) 02/22/17 06:42 [place] % (Auto) 8.0 % (0.0-7.3) H 02/22/17 06:42 Eos % (Auto) 1.4 % (0.0-4.3) 02/22/17 06:42 Baso % (Auto) 0.4 % (0.0-1.8) 02/22/17 06:42 Lymph # 1.3 K/mm3 (1.2-5.4) 02/22/17 06:42 [place] # 0.7 K/mm3 (0.0-0.8) 02/22/17 06:42 Eos # 0.1 K/mm3 (0.0-0.4) 02/22/17 06:42 Baso # 0.0 K/mm3 (0.0-0.1) 02/22/17 06:42 Seg Neutrophils % 76.8 % (40.0-70.0) H 02/22/17 06:42 Seg Neutrophils # 7.2 K/mm3 (1.8-7.7) 02/22/17 06:42 D-Dimer 306.73 ng/mlDDU (0-234) H 02/21/17 08:01 Sodium 146 mmol/L (137-145) H 02/24/17 05:35 Potassium 3.4 mmol/L (3.6-5.0) L 02/23/17 07:34 Chloride 104.3 mmol/L (98-107) 02/23/17 07:34 Carbon Dioxide 27 mmol/L (22-30) 02/24/17 05:35 Anion Gap 17 mmol/L 02/23/17 07:34 BUN 31 mg/dL (9-20) H 02/24/17 05:35 Creatinine 1.9 mg/dL (0.8-1.5) H 02/24/17 05:35 Estimated GFR 45 ml/min 02/24/17 05:35 BUN/Creatinine Ratio 16.31 % 02/24/17 05:35 Glucose 96 mg/dL (75-100) 02/24/17 05:35 Uric Acid 9.1 mg/dL (3.5-7.6) H 02/22/17 06:42 Calcium 8.4 mg/dL (8.4-10.2) 02/24/17 05:35 Total Bilirubin 0.70 mg/dL (0.1-1.2) 02/21/17 08:01 Direct Bilirubin 0.2 mg/dL (0-0.2) 02/21/17 08:01 Indirect Bilirubin 0.5 mg/dL 02/21/17 08:01 AST 23 units/L (5-40) 02/21/17 08:01 ALT 20 units/L (7-56) 02/21/17 08:01 Alkaline Phosphatase 80 units/L (35-129) 02/21/17 08:01 Troponin T 0.025 ng/mL (0.00-0.029) 02/21/17 00:03 NT-Pro-B Natriuret Pep 55917 pg/mL (0-900) H 02/21/17 00:03 Total Protein 6.3 g/dL (6.3-8.2) 02/21/17 08:01 Albumin 3.3 g/dL (3.9-5) L 02/21/17 08:01 Albumin/Globulin Ratio 1.1 % 02/21/17 08:01 Urine Color Yellow (Yellow) 02/22/17 Unknown Urine Turbidity Clear (Clear) 02/22/17 Unknown Urine pH 6.0 (5.0-7.0) 02/22/17 Unknown Ur Specific [place] 1.019 (1.003-1.030) 02/22/17 Unknown Urine Protein 30 mg/dl mg/dL (Negative) 02/22/17 Unknown Urine Glucose (UA) 50 mg/dL (Negative) 02/22/17 Unknown Urine Ketones Neg mg/dL (Negative) 02/22/17 Unknown Urine Blood Neg (Negative) 02/22/17 Unknown Urine Nitrite Neg (Negative) 02/22/17 Unknown Urine Bilirubin Neg (Negative) 02/22/17 Unknown Urine Urobilinogen < 2.0 mg/dL (<2.0) 02/22/17 Unknown Ur Leukocyte Esterase Neg (Negative) 02/22/17 Unknown Urine WBC (Auto) 1.0 /HPF (0.0-6.0) 02/22/17 Unknown Urine RBC (Auto) < 1.0 /HPF (0.0-6.0) 02/22/17 Unknown U Epithel Cells (Auto) < 1.0 /HPF (0-13.0) 02/22/17 Unknown
--- NOTE | 2017-02-24 10:29 | Discharge Summary ---
Providers - Providers Date of Admission: 02/21/17 11:31 Date of discharge: 02/24/17 Attending physician: JOCELYNN PETERSON MD 02/24/17 09:40 Consult to Physician [CONS] Routine Consulting Provider: MARGARETTE GONZALES Reason For Exam: CHF Place consult to:: cardiology Notified:: n Primary care physician: PASSENGER CAR CONDUCTOR Hospitalization Reason for admission: shortness of breath Condition: Stable Hospital course: Patient is a 51-year-old Afro-Maldivian male who presents to the emergency department from home with complaint of a 24-hour history of shortness of breath. He says "I told my sister was having trouble breathing and she told me I should go to the emergency department." It is associated with some chest tightness. He denies any nausea, vomiting or diaphoresis. He does present with some lower extremity swelling. He has a history of COPD but is not oxygen dependent. He has a history of CHF. He does not have a nebulized breathing machine but does have an inhaler and tried his inhaler without much relief. He also has a history of being on Lasix but says he has been out of the medication for about 1 week. He also says that he was recently diagnosed with hepatitis C. He denies any current smoking. No recent travel or sick contacts at home. Sister presented to the hospital front of the patient was actually being seen by [facility] for cardiac consultation was transferred to them. Patient was noted to have an EF of 15-20% ischemic workup was planned but this was canceled as the patient had a recent stress test that was negative at the house detective office per their Documentation. Nonetheless a LifeVest was recommended for this patient will be arranged prior to discharge I did discuss this extensively with the patient need to be compliant and need to avoid cocaine and polysubstance abuse is clinically stable his sister reports that she will be living with her showed that he is compliant with all his medications. -Acute on chronic systolic heart failure -Nonischemic cardiomyopathy -Acute kidney injury -Hypertension -Hypokalemia -Atypical chest pain -Elevated D.dimer- Negative V/Q -Hepatitis C -Tobacco dependence -Cocain abuse. -Chronic COPD Disposition: DC-30 STILL A PATIENT Time spent for discharge: 35 Core Measure Documentation - Palliative Care Palliative Care/ Comfort Measures: Not Applicable - Core Measures Any of the following diagnoses?: heart failure - VTE Discharge Requirements Deep Vein Thrombosis/Pulmonary Embolism Present on Admission: No - Heart Failure Discharge Requirements MARITZA/ARB for LVSD if EF <40%: Yes Beta norma at discharge: Yes Exam - Physical Exam Narrative exam: VITAL SIGNS: Reviewed. GENERAL: The patient appeared well nourished and normally developed. Vital signs as documented. HEAD: No signs of head trauma. EYES: Pupils are equal. Extraocular motions intact. EARS: Hearing grossly intact. MOUTH: Oropharynx is normal. NECK: No adenopathy, no JVD. CHEST: Chest with clear breath sounds bilaterally. No wheezes, rales, or rhonchi. CARDIAC: Regular rate and rhythm. S1 and S2, without murmurs, gallops, or rubs. VASCULAR: No Edema. Peripheral pulses normal and equal in all extremities. ABDOMEN: Soft, without detectable tenderness. No sign of distention. No rebound or guarding, and no masses palpated. Bowel Sounds normal. MUSCULOSKELETAL: Good range of motion of all major joints. Extremities without clubbing, cyanosis or edema. NEUROLOGIC EXAM: Alert and oriented x 3. No focal sensory or strength deficits. Speech normal. Follows commands. PSYCHIATRIC: Mood normal. SKIN: No rash or lesions. - Constitutional Vitals: Temp Pulse Resp BP Pulse Ox 98.3 F 68 20 129/91 100 02/24/17 06:39 02/24/17 06:39 02/24/17 06:39 02/24/17 06:39 02/24/17 06:39 Plan Activity: advance as tolerated, fall precautions Diet: low fat, low salt Special Instructions: restrict fluid intake to (1200cc/day) Follow up with: ZAHEER SANCHEZ MD [Primary Care Provider] - 3-5 Days ESTRELLA IVEY MD [Staff Physician] - 7 Days MARGARETTE GONZALES MD [Staff Physician] - 7 Days Prescriptions: Carvedilol [Coreg] 25 mg PO BID #30 tablet
--- NOTE | 2017-02-24 12:49 | Progress Note ---
Assessment and Plan Acute systolic heart failure Dilated cardiomyopathy Chest pain, atypical Elevated DDimer V/Q normal Hypertension Acute renal failure COPD Hx of Hepatitis C Tobacco/cocaine abuse Hypokalemia Echocardiogram shows a moderate to severe MR. 4 chamber dilated cardiomyopathy, EF 15-20%. MPI at [facility] 09/2016 reports a fixed defect of mild intensity involving the inferior wall, no reversible ischemia. Recommendations: Medical therapy for his systolic heart failure. Lifevest placement before discharge. Subjective Date of service: 02/24/17 Principal diagnosis: HF Interval history: Cardiac services transferred from [facility] to [facility] as this patient is followed by our group as an outpatient. Patient is admitted with CHF exacerbation. After several day of IV diuresis he reports he is feeling better. He denies chest pain. He denies palpitations. Objective Vital Signs Temp Pulse Pulse Pulse Resp Resp BP 02/24/17 11:27 98.4 F 62 18 02/24/17 06:39 98.3 F 68 20 02/24/17 03:31 74 02/24/17 02:07 98.4 F 70 20 02/23/17 22:03 73 131/106 02/23/17 21:44 97.4 F L 73 18 02/23/17 21:10 77 20 02/23/17 20:54 75 20 02/23/17 16:50 99.9 F H 69 20 BP Pulse Ox 02/24/17 11:27 120/79 99 02/24/17 06:39 129/91 100 02/24/17 03:31 02/24/17 02:07 129/90 97 02/23/17 22:03 02/23/17 21:44 131/106 96 02/23/17 21:10 02/23/17 20:54 02/23/17 16:50 125/90 100 - Physical Examination General: No Apparent Distress HEENT: Positive: PERRL Neck: Positive: trachea midline Cardiac: Positive: Reg Rate and Rhythm Lungs: Positive: Decreased Breath Sounds Neuro: Positive: Grossly Intact Extremities: Absent: edema - Labs and Meds Comprehensive Metabolic Panel 02/24/17 Range/Units 05:35 Sodium 146 H (137-145) mmol/L Carbon Dioxide 27 (22-30) mmol/L BUN 31 H (9-20) mg/dL Creatinine 1.9 H (0.8-1.5) mg/dL Glucose 96 (75-100) mg/dL Calcium 8.4 (8.4-10.2) mg/dL - Imaging and Cardiology EKG: report reviewed, image reviewed Echo: pending - EKG Sinus rhythms and dysrhythmias: sinus rhythm Repolarization changes or abnormalities: nonspecific abnormality, ST segment, and/or T wave
[2017-02-24 20:21] VITALS: BP 136/81
--- NOTE | 2017-02-26 16:19 | Consultation ---
History of Present Illness - Reason for Consult Consult date: 02/21/17 - History of Present Illness date of service February 21, 2017, time of service 3.40 pm dictation system down note could not be dictated hence transcribed Assessment and plan Renal failure in a patient who has multiple risk factor for underlying chronic kidney disease Patient was made aware of other degree and severity of renal dysfunction We'll order a basic workup for renal failure he will need to follow-up in the office upon discharge History of cocaine use, COPD, congestive heart failure; presented with shortness of breath Mild anemia hemoglobin in the range of 11.6 Mild hypokalemia to follow ProBNP more than 10,000 Urinalysis shows 30 mg protein no blood We will continue to follow and make recommendation from renal standpoint History of present illness; Patient is a 51-year-old -[place] male who came to the ER with complaints of shortness of breath. He was also complaining of chest tightness with some lower extremity swelling. Patient does have a history of underlying COPD as well as congestive heart failure and has been using cocaine up until one week ago. He also has history of renal failure but does not recall his baseline creatinine periodically he will take some nonsteroidal drug nocturnal regular basis. Patient is homeless and currently does not follow-up with physicians he does have history of hepatitis C as well. He does not recall having any history of paraproteinemias lupus vasculitis nor does he have any history suggestive of recent strep throat. 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 Evaluation in the ER showed that his creatinine was 2.1 and potassium was 3.6 hemoglobin 11.5. BNP was more than 10,000 Chest x-ray showed evidence of pulmonary vascular congestion EKG showed evidence of sinus rhythm with T-wave inversion in lead V5 and V6 Care plan was discussed with patient all questions were answered We will continue to follow and make recommendation for renal standpoint Thank you for the consultation Review of system is positive for; generalized weakness fatigue shortness of breath Negative for any dysuria or burning frequency foam in the urine Complete review of systems were obtained pertinent positives mentioned above other review of system negative Physical examination: Vitals: Reviewed General: Alert awake no acute distress HEENT: Oral mucosa moist no pharyngeal erythema Neck: Supple no thyromegaly some JVD no palpable mass Chest examination: bilateral basilar crackles with some wheezes Heart: Regular rate and rhythm S1-S2 heard no S3-S4 Abdomen: Soft non tender bowel sounds present no renal bruit no suprapubic mass no CVA tenderness Extremities: Skin appears to be dry 1+ peripheral edema no peripheral cyanosis Endocrine: No thyromegaly nodular mass or changes of myxedema Psychiatry: Alert awake no acute distress no agitation Back: Non tender thoracolumbar spine Dermatology: Dry skin minimal edema Past History Past Medical History: COPD, heart failure, hepatitis, hypertension Social history: smoking. denies: alcohol abuse, prescription drug abuse Medications and Allergies Allergies Allergy/AdvReac Type Severity Reaction Status Date / Time No Known Allergies Allergy Unverified 02/20/17 23:50 Home Medications Medication Instructions Recorded Confirmed Last Taken Type Aspirin [Adult Low Dose Aspirin EC] 81 mg PO DAILY 02/21/17 02/21/17 Unknown History AtorvaSTATin [Lipitor] 40 mg PO QHS 02/21/17 02/21/17 Unknown History Escitalopram [Lexapro] 10 mg PO DAILY 02/21/17 02/21/17 Unknown History Folic Acid [Folvite] 1 mg PO QDAY 02/21/17 02/21/17 Unknown History Furosemide [Lasix TAB] 40 mg PO QDAY 02/21/17 02/21/17 Unknown History Hydralazine HCl [Apresoline TAB] 50 mg PO Q8HR 02/21/17 02/21/17 Unknown History Lisinopril [Zestril TAB] 10 mg PO QDAY 02/21/17 02/21/17 Unknown History Quetiapine Fumarate [SEROquel] 50 mg PO QDAY 02/21/17 02/21/17 Unknown History Spironolactone [Aldactone] 25 mg PO QDAY 02/21/17 02/21/17 Unknown History Warfarin [Coumadin] 5 mg PO QDAY 02/21/17 02/21/17 Unknown History Zolpidem [Ambien] 5 mg PO QHS PRN 02/21/17 02/21/17 Unknown History Carvedilol [Coreg] 25 mg PO BID #30 tablet 02/24/17 Unknown Rx Exam - Vital Signs Vital signs: Vital Signs Temp Pulse Resp BP Pulse Ox 97.7 F 95 H 22 162/115 99 02/20/17 23:48 02/20/17 23:48 02/20/17 23:48 02/20/17 23:48 02/20/17 23:48 Results - Lab Results 02/22/17 06:42 02/24/17 05:35 Most recent lab results Calcium 8.4 mg/dL (8.4-10.2) 02/24/17 05:35
[2017-02-26 22:10] LABS: Albumin 3.2 g/dL (3.8-4.8); Gamma Globulin 1.1 g/dL (0.8-1.7)
== END 2017-02-24 21:45 | disposition home or self-care (01) | DRG 682 ==
LOC: ED 23:15 → 4A 02-21 11:31
PROVIDERS: ADMIT Hospitalist; ATTEND Internal Medicine
DX: N17.0 Acute kidney failure with tubular necrosis (principal); I50.23 Acute on chronic systolic (congestive) heart failure; I13.0 Hypertensive heart and chronic kidney disease with heart failure and stage 1 through stage 4 chronic kidney disease, or unspecified chronic kidney disease; F17.200 Nicotine dependence, unspecified, uncomplicated; J44.1 Chronic obstructive pulmonary disease with (acute) exacerbation; B19.20 Unspecified viral hepatitis C without hepatic coma; E87.6 Hypokalemia; F14.10 Cocaine abuse, uncomplicated; I42.9 Cardiomyopathy, unspecified; N18.3 Chronic kidney disease, stage 3 (moderate); Z79.82 Long term (current) use of aspirin; Z96.642 Presence of left artificial hip joint; Z59.0 Homelessness
CPT/HCPCS: 36415; 71020; 76770; 78582; 80048; 80074; 81001; 83880; 84165; 84484; 84550; 85025; 85379; 93005; 93010; 93306; 94640; 96374; 96375; A9540; A9558; J1644; J1940; J2785; J2930